=== PATIENT | male | born 1960 | race Caucasian/White ===

== ENCOUNTER 2017-05-29 12:54 | Emergency (ER) | payer SELFPAY ==
[2017-05-29] MEDS ORDERED: Sodium Chloride 0.9% 1,000 ML IV ONE (13:58)
--- NOTE | 2017-05-29 13:58 | EDM.PDOC ---
ED HPI GENERAL MEDICAL PROBLEM - General Chief Complaint: Cardiovascular Problem Stated Complaint: HBP Time Seen by Provider: 05/29/17 13:41 Source of Information: Reports: Patient History Limitations: Reports: No Limitations - History of Present Illness INITIAL COMMENTS - FREE TEXT/NARRATIVE: HISTORY AND PHYSICAL: History of present illness: Patient is a 56-year-old male who presents to the emergency room today after being recommended to be evaluated here due to high blood pressure reading. He was at a pre-employment health screening when he had a reading of 200s over 100s. At that time [facility] who had given him 2 doses of clonidine 0.1 mg, which were not successful in lowering his blood pressure. Patient denies any systemic complaints and has no health concerns at this time. Denies any headache, change in vision, chest pain, shortness of breath, abdominal pain, nausea, vomiting or diarrhea. Reports that his last wellness/physical exam was approximately 6 years ago when he was diagnosed with pneumonia. Otherwise he has not seen a medical doctor or had any routine labs done since that time. He is unsure of any family history of heart disease or hypertension. He has no personal history of smoking or tobacco use. Reports limited caffeine use. Has not received the [id number] influenza vaccine. Review of systems: As per history of present illness and below otherwise all systems reviewed and negative. Past medical history: As per history of present illness and as reviewed below otherwise noncontributory. Surgical history: As per history of present illness and as reviewed below otherwise noncontributory. Social history: No reported history of drug or alcohol abuse. Family history: As per history of present illness and as reviewed below otherwise noncontributory. Physical exam: General: Well-developed and well-nourished 56-year-old male. Alert and oriented. Nontoxic appearing and in no acute distress. HEENT: Atraumatic, normocephalic, pupils reactive, negative for conjunctival pallor or scleral icterus, mucous membranes moist, throat clear, neck supple, nontender, trachea midline. Lungs: Clear to auscultation, breath sounds equal bilaterally, chest nontender. Heart: S1S2, regular rate and rhythm Abdomen: Soft, obese, nondistended, nontender. Negative for masses or hepatosplenomegaly. Negative for costovertebral tenderness. Pelvis: Stable nontender. Genitourinary: Deferred. Rectal: Deferred. Extremities: Atraumatic, moves all extremities per self without difficulty or deficits, negative for cords or calf pain. Neurovascular unremarkable. Neuro: Awake, alert, oriented. Cranial nerves II through XII unremarkable. Cerebellum unremarkable. Motor and sensory unremarkable throughout. Exam nonfocal. Patient remains asymptomatic. Offers no complaints. Lab results are pending. Monitoring blood pressure at this time. Labs are within normal limits and no target organ damage is noted while reviewing these. Current blood pressure is 132/93 with IV fluids. Will start the patient on lisinopril 10 mg once daily. We discussed in great length the necessity of following up with the primary care provider for further management and evaluation of his blood pressure. He voices understanding and is agreeable to plan of care. He denies any further questions at this time. Diagnostics: CBC, CMP, EKG, chest x-ray Therapeutics: IV fluid, lisinopril Impression: Hypertension Plan: 1. Your lab values are normal today. 2. Start lisinopril 10 mg once daily. It is imperative that you primary care provider to further manage and evaluate her hypertension. On managed blood pressure can lead to organ damage and stroke. 3. Follow up with her primary caregiver in the next 3-5 days. Return to the ED as needed and as we discussed. Definitive disposition and diagnosis as appropriate pending reevaluation and review of above. Onset: Unknown/Unsure - Related Data Allergies Allergy/AdvReac Type Severity Reaction Status Date / Time No Known Allergies Allergy Verified 05/29/17 13:16 Home Meds: Home Meds . [No Known Home Meds] 05/29/17 [History] Past Medical History HEENT History: Reports: None Cardiovascular History: Reports: None Respiratory History: Reports: None Gastrointestinal History: Reports: None Genitourinary History: Reports: None Musculoskeletal History: Reports: None Neurological History: Reports: None Psychiatric History: Reports: None Endocrine/Metabolic History: Reports: None Hematologic History: Reports: None Immunologic History: Reports: None Oncologic (Cancer) History: Reports: None Dermatologic History: Reports: None - Past Surgical History Head Surgeries/Procedures: Reports: None HEENT Surgical History: Reports: None Cardiovascular Surgical History: Reports: None Respiratory Surgical History: Reports: None GI Surgical History: Reports: None Male Surgical History: Reports: None Endocrine Surgical History: Reports: None Neurological Surgical History: Reports: None Musculoskeletal Surgical History: Reports: Other (See Below) Other Musculoskeletal Surgeries/Procedures:: ankle Oncologic Surgical History: Reports: None Dermatological Surgical History: Reports: None Social & Family History - Family History Family Medical History: Unobtainable - Tobacco Use Smoking Status *Q: Never Smoker - Caffeine Use Caffeine Use: Reports: Coffee - Recreational Drug Use Recreational Drug Use: No ED ROS GENERAL - Review of Systems Review Of Systems: ROS reveals no pertinent complaints other than HPI. ED EXAM, GENERAL - Physical Exam Exam: See Below (See dictation) Course - Vital Signs Last Recorded V/S: Last Vital Signs Temp 96.7 F 05/29/17 13:14 Pulse 73 05/29/17 14:37 Resp 16 05/29/17 14:37 BP 132/93 H 05/29/17 14:42 Pulse Ox 96 05/29/17 14:37 - Orders/Labs/Meds Orders: Active Orders 24 hr Category Date Time Status EKG Documentation Completion [RC] STAT Care 05/29/17 13:29 Active Labs: Laboratory Tests 05/29/17 05/29/17 Range/Units 13:55 13:55 WBC 6.45 (4.0-11.0) K/uL RBC 4.53 (4.50-5.90) M/uL Hgb 14.3 (13.0-17.0) g/dL Hct 41.2 (38.0-50.0) % MCV 90.9 (80.0-98.0) fL MCH 31.6 (27.0-32.0) pg MCHC 34.7 (31.0-37.0) g/dL RDW Std Deviation 46.8 (28.0-62.0) fl RDW Coeff of Lisette 14 (11.0-15.0) % Plt Count 192 (150-400) K/uL MPV 11.10 (7.40-12.00) fL Neut % (Auto) 67.6 (48.0-80.0) % Lymph % (Auto) 23.4 (16.0-40.0) % [place] % (Auto) 7.1 (0.0-15.0) % Eos % (Auto) 1.6 (0.0-7.0) % Baso % (Auto) 0.3 (0.0-1.5) % Neut # (Auto) 4.4 (1.4-5.7) K/uL Lymph # (Auto) 1.5 (0.6-2.4) K/uL [place] # (Auto) 0.5 (0.0-0.8) K/uL Eos # (Auto) 0.1 (0.0-0.7) K/uL Baso # (Auto) 0.0 (0.0-0.1) K/uL Nucleated RBC % 0.0 /100WBC Nucleated RBCs # 0 K/uL Sodium 141 (136-146) mmol/L Potassium 4.2 (3.5-5.1) mmol/L Chloride 108 (98-110) mmol/L Carbon Dioxide 24 (21-31) mmol/L BUN 16 (6.0-23.0) mg/dL Creatinine 1.0 (0.6-1.5) mg/dL Est Cr Clr Drug Dosing 90.53 mL/min Estimated GFR (MDRD) > 60.0 ml/min Glucose 113 H (60-110) mg/dL Calcium 9.3 (8.8-10.8) mg/dL Total Bilirubin 0.8 (0.1-1.5) mg/dL AST 20 (5-40) IU/L ALT 27 (8-54) IU/L Alkaline Phosphatase 67 (40-150) Troponin I < 0.10 (0.0-0.29) NG/ML Total Protein 6.7 (6.0-8.0) g/dL Albumin 4.2 (3.5-5.0) g/dL Globulin 2.5 (2.0-3.5) g/dL Albumin/Globulin Ratio 1.7 (1.3-2.8) Meds: Medications Discontinued Medications Generic Name Dose Route Start Last Admin Trade Name Freq PRN Reason Stop Dose Admin Sodium Chloride 1,000 mls @ 999 mls/hr 05/29/17 13:58 05/29/17 14:38 Normal Saline IV 05/29/17 14:58 999 mls/hr STAT ONE Administration Lisinopril 10 mg 05/29/17 14:37 05/29/17 14:42 Prinivil PO 05/29/17 14:38 10 mg ONETIME ONE Administration Departure - Departure Time of Disposition: 15:10 Disposition: Home, Self-Care 01 Clinical Impression: Hypertension Qualifiers: Hypertension type: essential hypertension Qualified Code(s): I10 - Essential ( primary) hypertension Referrals: PCP,None [Primary Care Provider] - Forms: ED Department Discharge Additional Instructions: My general discharge The following information is given to patients seen in the emergency department who are being discharged to home. This information is to outline your options for follow-up care. We provide all patients seen in our emergency department with a follow-up referral. The need for follow-up, as well as the timing and circumstances, are variable depending upon the specifics of your emergency department visit. If you don't have a primary care physician on staff, we will provide you with a referral. We always advise you to contact your personal physician following an emergency department visit to inform them of the circumstance of the visit and for follow-up with them and/or the need for any referrals to a consulting specialist. The emergency department will also refer you to a specialist when appropriate. This referral assures that you have the opportunity for follow-up care with a specialist. All of these measure are taken in an effort to provide you with optimal care, which includes your follow-up. Under all circumstances we always encourage you to contact your private physician who remains a resource for coordinating your care. When calling for follow-up care, please make the office aware that this follow-up is from your recent emergency room visit. If for any reason you are refused follow-up, please contact the [facility] Emergency Department at and asked to speak to the emergency department charge nurse. [facility] [address] [place] [id number] 1. Your lab values are normal today. 2. Start lisinopril 10 mg once daily. It is imperative that you primary care provider to further manage and evaluate her hypertension. On managed blood pressure can lead to organ damage and stroke. 3. Follow up with her primary caregiver in the next 3-5 days. Return to the ED as needed and as we discussed.
[2017-05-29 14:30] LABS: CHLORIDE,CL 108 mmol/L (98-110); SODIUM,NA 141 mmol/L (136-146)
[2017-05-29] MEDS ORDERED: Lisinopril 10 MG Tab PO ONE (14:37)
--- NOTE | 2017-05-29 14:46 | CR ---
EXAMINATION: Portable chest radiograph. HISTORY: Hypertension. FINDINGS: The trachea is midline. The cardiomediastinal silhouette is within normal limits. No pulmonary infilt rates, effusions or pneumothorax. Mild interstitial prominence. Osseous structures appear unremarkable. IMPRESSION: No acute cardiopulmonary process.
== END 2017-05-29 15:46 | disposition home or self-care (01) ==
LOC: MW.ED 12:54
DX: I10 Essential (primary) hypertension (principal)
CPT/HCPCS: 36415; 71045; 80053; 84484; 85025; 93005; 96360; 99284; A9270; J7040